=== PATIENT | male | born 1950 | race Caucasian/White ===

== ENCOUNTER 2022-04-08 10:47 | Outpatient (CLI) | payer BC ==
[~2022-04-08 10:47] MED LIST: Iopamidol 370 76% 100 ML VIAL ONE
== END 2022-04-08 10:48 | disposition home or self-care (01) ==
LOC: CT 10:47
PROVIDERS: ATTEND Internal Medicine Hematology & Oncology
DX: C22.0 Liver cell carcinoma (principal); Z98.890 Other specified postprocedural states
CPT/HCPCS: 71260; 74177; 82565; Q9967

== ENCOUNTER 2022-05-22 12:09 | Emergency (ER) | payer BC ==
[2022-05-22 12:51] LABS: Bilirubin Negative (Negative); Blood, Urine 2+ (Negative); Clarity Extra Turbid (Clear); Glucose, Urine (Dipstick) Normal (Negative); Ketone, Urine Negative (Negative); Leukocyte 500 Leu/uL (Negative); Nitrite Negative (Negative); Protein, Urine (Dipstick) 70 mg/dL (Neg-Trace); Specific Gravity, Urine 1.012 (1.002-1.036); Squamous Epithelial 0-3 HPF (0-3); pH, Urine 5.5 (5.0-9.0)
[2022-05-22 12:57] LABS: Bacteria/HPF 4+ HPF (None Seen); WBC/HPF 21-50 HPF (0-3)
== END 2022-05-22 13:24 | disposition home or self-care (01) ==
LOC: ERS 12:09
DX: N30.00 Acute cystitis without hematuria (principal); F17.220 Nicotine dependence, chewing tobacco, uncomplicated
CPT/HCPCS: 81003; 81015; 87077; 87086; 87186; 99283

== ENCOUNTER 2022-06-10 10:14 | Outpatient (CLI) | payer BC | END 2022-06-10 10:15 | disposition home or self-care (01) | LOC: CT 10:14 | PROVIDERS: ATTEND Internal Medicine Hematology & Oncology | DX: C22.0 Liver cell carcinoma (principal) | CPT/HCPCS: 71260; 82565; Q9967 ==

== ENCOUNTER 2024-07-15 11:05 | Day surgery (SDC) | payer BC, MEDICARE ==
[2024-07-15 11:33] LABS: #Basophils 0.07 10x3/uL (0.0-0.2); %Basophils 1.5 % (0.0-1.0); %Eosinophils 15.1 % (0.0-10.0); %Monocytes 8.5 % (0.0-10.0); %Neutrophils 63.7 % (42.0-75.0); Hemoglobin 11.9 g/dL (14.0-18.0); Mean Corpuscular HGB CONC 33.1 g/dL (32.0-36.0); Mean Corpuscular Hemoglobin 31.6 pg (27.0-31.0); Mean Corpuscular Volume 95.7 fL (78.0-98.0); Mean Platelet Volume 9.9 fL (7.4-10.4); Platelet Count 131 10x3/uL (130-400); RBC Distribution Width 14.9 % (11.5-14.5); Red Blood Cell (RBC) Count 3.76 mill/uL (4.70-6.10)
[2024-07-15 11:45] LABS: INR-International Normal Ratio 1.1; PTT 35.4 sec (22.9-36.1)
[2024-07-15] MEDS ORDERED: Lidocaine 1% PF 5 ML VIAL ONE (13:12)
== END 2024-07-15 14:38 | disposition home or self-care (01) ==
LOC: ULT 11:05
PROC: 0W9G30Z Drainage of Peritoneal Cavity with Drainage Device, Percutaneous Approach (ICD-10-PCS; principal; 2024-07-15)
DX: R18.8 Other ascites (principal); C22.0 Liver cell carcinoma; B18.2 Chronic viral hepatitis C; K72.90 Hepatic failure, unspecified without coma
CPT/HCPCS: 49083; 85025; 85610; 85730

== ENCOUNTER 2024-10-29 12:13 | Day surgery (SDC) | payer MEDICARE ==
[2024-10-29] MEDS ORDERED: Lidocaine 1% PF 5 ML VIAL ONE (13:35)
== END 2024-10-29 14:30 | disposition home or self-care (01) ==
LOC: MERGE 12:13 → ULT 12:13
PROVIDERS: ATTEND Internal Medicine Gastroenterology
PROC: 0W9G30Z Drainage of Peritoneal Cavity with Drainage Device, Percutaneous Approach (ICD-10-PCS; principal; 2024-10-29)
DX: R18.8 Other ascites (principal); I10 Essential (primary) hypertension; E78.00 Pure hypercholesterolemia, unspecified; Z79.82 Long term (current) use of aspirin; Z79.899 Other long term (current) drug therapy; Z87.891 Personal history of nicotine dependence
CPT/HCPCS: 49083

== ENCOUNTER 2024-11-13 12:07 | Day surgery (SDC) | payer MEDICARE ==
[2024-11-13] MEDS ORDERED: Lidocaine 1% PF 5 ML VIAL ONE (12:26)
[2024-11-13] MEDS ORDERED: Sodium Bicarbonate 2.5 MEQ/5 ML SDV ONE (12:26)
[2024-11-13 12:33] LABS: %Basophils 1.5 % (0.0-1.0); %Eosinophils 14.2 % (0.0-10.0); %Lymphocytes 9.4 % (21.0-51.0); %Monocytes 9.1 % (0.0-10.0); %Neutrophils 65.5 % (42.0-75.0); Hematocrit 31.6 % (42.0-52.0); Hemoglobin 10.4 g/dL (14.0-18.0); Mean Corpuscular HGB CONC 32.9 g/dL (32.0-36.0); Mean Corpuscular Hemoglobin 30.9 pg (27.0-31.0); Mean Corpuscular Volume 93.8 fL (78.0-98.0); Mean Platelet Volume 10.7 fL (7.4-10.4); Platelet Count 133 10x3/uL (130-400); RBC Distribution Width 14.9 % (11.5-14.5); Red Blood Cell (RBC) Count 3.37 mill/uL (4.70-6.10)
[2024-11-13 12:50] LABS: Anion Gap 13 mmol/L (10-20); BUN (Urea Nitrogen) 42 mg/dL (8.4-25.7); Calc. Creatinine Clearance 0 mL/min (70-130); Calcium 8.9 mg/dL (7.8-10.44); Carbon Dioxide 23 mmol/L (23-31); Chloride 112 mmol/L (98-107); Estimated GFR 40; Glucose 90 mg/dL (83-110); Potassium 3.9 mmol/L (3.5-5.1); Sodium 144 mmol/L (136-145)
[2024-11-13 12:52] LABS: PTT 34.8 sec (22.9-36.1)
== END 2024-11-13 14:10 | disposition home or self-care (01) ==
LOC: ULT 12:07 → MERGE 13:15 → ULT 14:10
PROVIDERS: ATTEND Internal Medicine Gastroenterology
PROC: 0W9G3ZZ Drainage of Peritoneal Cavity, Percutaneous Approach (ICD-10-PCS; principal; 2024-11-13)
DX: R18.8 Other ascites (principal); I85.00 Esophageal varices without bleeding; I10 Essential (primary) hypertension; E78.00 Pure hypercholesterolemia, unspecified; Z95.5 Presence of coronary angioplasty implant and graft; Z87.891 Personal history of nicotine dependence; Z85.05 Personal history of malignant neoplasm of liver; Z90.49 Acquired absence of other specified parts of digestive tract; Z88.5 Allergy status to narcotic agent; Z79.890 Hormone replacement therapy; Z79.82 Long term (current) use of aspirin; Z79.899 Other long term (current) drug therapy
CPT/HCPCS: 36415; 49083; 80048; 85025; 85610; 85730

== ENCOUNTER 2025-04-02 12:46 | Day surgery (SDC) | payer MEDICARE ==
[2025-04-02] MEDS ORDERED: Sodium Bicarbonate 2.5 MEQ/5 ML SDV ONE (13:08)
[2025-04-02] MEDS ORDERED: Lidocaine 1% PF 5 ML VIAL ONE (13:08)
== END 2025-04-02 14:25 | disposition home or self-care (01) ==
LOC: ULT 12:46
PROVIDERS: ATTEND Internal Medicine Gastroenterology
PROC: 0W9G3ZZ Drainage of Peritoneal Cavity, Percutaneous Approach (ICD-10-PCS; principal; 2025-04-02)
DX: C22.0 Liver cell carcinoma (principal); K74.60 Unspecified cirrhosis of liver; R18.8 Other ascites; Z88.5 Allergy status to narcotic agent
CPT/HCPCS: 49083

== ENCOUNTER 2025-04-25 12:26 | Day surgery (SDC) | payer MEDICARE ==
[2025-04-25] MEDS ORDERED: Lidocaine 1% PF 5 ML VIAL ONE (12:32)
[2025-04-25] MEDS ORDERED: Sodium Bicarbonate 2.5 MEQ/5 ML SDV ONE (12:33)
== END 2025-04-25 13:50 | disposition home or self-care (01) ==
LOC: ULT 12:26
PROVIDERS: ATTEND Internal Medicine Gastroenterology
DX: K74.60 Unspecified cirrhosis of liver (principal); R18.8 Other ascites; C22.0 Liver cell carcinoma; Z88.5 Allergy status to narcotic agent; Z88.8 Allergy status to other drugs, medicaments and biological substances; Z86.19 Personal history of other infectious and parasitic diseases
CPT/HCPCS: 49083

== ENCOUNTER 2025-05-02 11:59 | Day surgery (SDC) | payer MEDICARE ==
[2025-05-02] MEDS ORDERED: Lidocaine 1% PF 5 ML VIAL ONE ×2 (12:48→13:48)
[2025-05-02] MEDS ORDERED: Sodium Bicarbonate 2.5 MEQ/5 ML SDV ONE (12:48)
== END 2025-05-02 14:40 | disposition home or self-care (01) ==
LOC: ULT 11:59
PROVIDERS: ATTEND Internal Medicine Gastroenterology
DX: K74.60 Unspecified cirrhosis of liver (principal); R18.8 Other ascites; C22.0 Liver cell carcinoma; Z86.19 Personal history of other infectious and parasitic diseases; Z88.5 Allergy status to narcotic agent; Z88.8 Allergy status to other drugs, medicaments and biological substances
CPT/HCPCS: 49083

== ENCOUNTER 2025-05-09 12:45 | Day surgery (SDC) | payer MEDICARE ==
[2025-05-09] MEDS ORDERED: Sodium Bicarbonate 2.5 MEQ/5 ML SDV ONE (13:26)
[2025-05-09] MEDS ORDERED: Lidocaine 1% w/Epinephrine 1:100K 20 ML VIAL ONE (13:26)
== END 2025-05-09 14:35 | disposition home or self-care (01) ==
LOC: ULT 12:45
PROVIDERS: ATTEND Internal Medicine Gastroenterology
PROC: 0W9G3ZZ Drainage of Peritoneal Cavity, Percutaneous Approach (ICD-10-PCS; principal; 2025-05-09)
DX: K74.60 Unspecified cirrhosis of liver (principal); R18.8 Other ascites; C22.0 Liver cell carcinoma; Z86.19 Personal history of other infectious and parasitic diseases
CPT/HCPCS: 49083

== ENCOUNTER 2025-05-16 12:11 | Day surgery (SDC) | payer MEDICARE ==
[2025-05-16] MEDS ORDERED: Lidocaine 1% w/Epinephrine 1:100K 20 ML VIAL ONE (12:58)
[2025-05-16] MEDS ORDERED: Sodium Bicarbonate 2.5 MEQ/5 ML SDV ONE (12:58)
[2025-05-16] MEDS ORDERED: Lidocaine 1% PF 5 ML VIAL ONE (12:58)
== END 2025-05-16 15:40 | disposition home or self-care (01) ==
LOC: ULT 12:11
PROVIDERS: ATTEND Internal Medicine Gastroenterology
PROC: 0W9G3ZZ Drainage of Peritoneal Cavity, Percutaneous Approach (ICD-10-PCS; principal; 2025-05-16)
DX: K74.60 Unspecified cirrhosis of liver (principal); R18.8 Other ascites; C22.0 Liver cell carcinoma; Z86.19 Personal history of other infectious and parasitic diseases
CPT/HCPCS: 49083

== ENCOUNTER 2025-05-30 12:09 | Day surgery (SDC) | payer MEDICARE ==
[2025-05-30] MEDS ORDERED: Sodium Bicarbonate 2.5 MEQ/5 ML SDV ONE (13:14)
[2025-05-30] MEDS ORDERED: Lidocaine 1% PF 5 ML VIAL ONE (13:14)
[2025-05-30 15:59] VITALS: BP 118/64; TEMP 98
== END 2025-05-30 15:00 | disposition home or self-care (01) ==
LOC: ULT 12:09
PROVIDERS: ATTEND Internal Medicine Gastroenterology
PROC: 0W9G3ZZ Drainage of Peritoneal Cavity, Percutaneous Approach (ICD-10-PCS; principal; 2025-05-30)
DX: C22.0 Liver cell carcinoma (principal); K74.60 Unspecified cirrhosis of liver; R18.8 Other ascites; Z86.19 Personal history of other infectious and parasitic diseases
CPT/HCPCS: 49083

== ENCOUNTER → 2025-06-06 | Day surgery (SDC) | payer MEDICARE ==
[~2025-06-06] MED LIST changes: -Iopamidol 370 76% 100 ML VIAL ONE; +Lidocaine 1% PF 5 ML VIAL ONE; +Sodium Bicarbonate 2.5 MEQ/5 ML SDV ONE
== END ==
LOC: ULT 12:23
PROVIDERS: ATTEND Internal Medicine Gastroenterology
PROC: 0W9G30Z Drainage of Peritoneal Cavity with Drainage Device, Percutaneous Approach (ICD-10-PCS; principal; 2025-06-06)
DX: C22.0 Liver cell carcinoma (principal); K74.60 Unspecified cirrhosis of liver; R18.8 Other ascites
CPT/HCPCS: 49083

== ENCOUNTER 2025-06-10 10:15 | Outpatient (CLI) | payer MEDICARE | END 2025-06-10 10:16 | disposition home or self-care (01) | LOC: PET 10:15 | PROVIDERS: ATTEND Internal Medicine Hematology & Oncology | DX: C22.0 Liver cell carcinoma (principal); R30.0 Dysuria; Z79.899 Other long term (current) drug therapy; M89.9 Disorder of bone, unspecified | CPT/HCPCS: 78815; A9552 ==

== ENCOUNTER 2025-06-13 12:50 | Day surgery (SDC) | payer MEDICARE ==
[2025-06-13] MEDS ORDERED: Lidocaine 1% w/Epinephrine 1:100K 20 ML VIAL ONE (13:13)
[2025-06-13] MEDS ORDERED: Lidocaine 1% PF 5 ML VIAL ONE (13:13)
[2025-06-13] MEDS ORDERED: Sodium Bicarbonate 2.5 MEQ/5 ML SDV ONE (13:13)
== END 2025-06-13 14:40 | disposition home or self-care (01) ==
LOC: ULT 12:50
PROVIDERS: ATTEND Internal Medicine Gastroenterology
PROC: 0W9G3ZZ Drainage of Peritoneal Cavity, Percutaneous Approach (ICD-10-PCS; principal; 2025-06-13)
DX: K74.60 Unspecified cirrhosis of liver (principal); R18.8 Other ascites; Z86.19 Personal history of other infectious and parasitic diseases
CPT/HCPCS: 49083

== ENCOUNTER → 2025-06-20 | Day surgery (SDC) | payer MEDICARE ==
[~2025-06-20] MED LIST changes: +Lidocaine 1% w/Epinephrine 1:100K 20 ML VIAL ONE
== END ==
LOC: ULT 11:37
PROVIDERS: ATTEND Internal Medicine Gastroenterology
PROC: 0W9G3ZZ Drainage of Peritoneal Cavity, Percutaneous Approach (ICD-10-PCS; principal; 2025-06-20)
DX: R18.8 Other ascites (principal); C22.0 Liver cell carcinoma; I85.00 Esophageal varices without bleeding
CPT/HCPCS: 49083

== ENCOUNTER 2025-06-27 13:01 | Day surgery (SDC) | payer MEDICARE ==
[2025-06-27 12:16] LABS: #Basophils 0.05 10x3/uL (0.0-0.2); #Eosinophils 0.58 10x3/uL (0.0-0.7); #Monocytes 0.29 10x3/uL (0.11-0.59); #Neutrophils 2.50 10x3/uL (1.40-6.50); %Basophils 1.3 % (0.0-1.0); %Eosinophils 15.0 % (0.0-10.0); %Lymphocytes 11.1 % (21.0-51.0); %Monocytes 7.5 % (0.0-10.0); %Neutrophils 64.8 % (42.0-75.0); Hematocrit 28.1 % (42.0-52.0); Hemoglobin 8.7 g/dL (14.0-18.0); Mean Corpuscular Hemoglobin 29.5 pg (27.0-31.0); Mean Corpuscular Volume 95.3 fL (78.0-98.0); Platelet Count 85 10x3/uL (130-400); Red Blood Cell (RBC) Count 2.95 mill/uL (4.70-6.10); White Blood Cell (WBC) Count 3.86 10x3/uL (4.8-10.8)
[2025-06-27 12:20] LABS: INR-International Normal Ratio 1.1; Prothrombin Time 14.2 sec (12.0-14.7)
[2025-06-27 12:21] LABS: PTT 35.1 sec (22.9-36.1)
[2025-06-27] MEDS ORDERED: Sodium Bicarbonate 2.5 MEQ/5 ML SDV ONE (13:05)
== END 2025-06-27 14:20 | disposition home or self-care (01) ==
LOC: ULT 13:01
PROVIDERS: ATTEND Internal Medicine Gastroenterology
PROC: 0W9G3ZZ Drainage of Peritoneal Cavity, Percutaneous Approach (ICD-10-PCS; principal; 2025-06-27)
DX: R18.8 Other ascites (principal); C22.0 Liver cell carcinoma; I85.00 Esophageal varices without bleeding
CPT/HCPCS: 36415; 49083; 85025; 85610; 85730

== ENCOUNTER 2025-07-04 12:24 | Day surgery (SDC) | payer MEDICARE ==
[2025-07-04] MEDS ORDERED: Lidocaine 1% PF 5 ML VIAL ONE ×2 (13:05→13:15)
[2025-07-04] MEDS ORDERED: Sodium Bicarbonate 2.5 MEQ/5 ML SDV ONE (13:05)
== END 2025-07-04 13:45 | disposition home or self-care (01) ==
LOC: ULT 12:24
PROVIDERS: ATTEND Internal Medicine Gastroenterology
PROC: 0W9G3ZZ Drainage of Peritoneal Cavity, Percutaneous Approach (ICD-10-PCS; principal; 2025-07-04)
DX: R18.8 Other ascites (principal); C22.0 Liver cell carcinoma; I85.00 Esophageal varices without bleeding
CPT/HCPCS: 49083

== ENCOUNTER 2025-07-18 12:34 | Day surgery (SDC) | payer MEDICARE ==
[2025-07-18] MEDS ORDERED: Sodium Bicarbonate 2.5 MEQ/5 ML SDV ONE (12:59)
[2025-07-18] MEDS ORDERED: Lidocaine 1% PF 5 ML VIAL ONE (12:59)
[2025-07-18 15:27] LABS: RBC Count-Automated (BF) 0 /cu.mm; WBC/Nucleated-Auto (BF) 9 /cu.mm
[2025-07-18 16:17] LABS: BF Segmented Neutrophils 12 %; Cell Count Non Hematic 40 %
== END 2025-07-18 14:30 | disposition home or self-care (01) ==
LOC: ULT 12:34
PROVIDERS: ATTEND Internal Medicine Gastroenterology
DX: R18.8 Other ascites (principal); C22.0 Liver cell carcinoma; I85.00 Esophageal varices without bleeding
CPT/HCPCS: 49083; 85060; 87070; 87205; 88112; 88305; 89051

== ENCOUNTER 2025-07-25 12:43 | Day surgery (SDC) | payer MEDICARE ==
[2025-07-25] MEDS ORDERED: Sodium Bicarbonate 2.5 MEQ/5 ML SDV ONE (13:15)
[2025-07-25] MEDS ORDERED: Lidocaine 1% PF 5 ML VIAL ONE (13:15)
[2025-07-25 15:34] LABS: RBC Count-Automated (BF) 9 /cu.mm; WBC/Nucleated-Auto (BF) 9 /cu.mm
[2025-07-25 16:18] LABS: BF Segmented Neutrophils 5 %; Cell Count Non Hematic 49 %
== END 2025-07-25 14:45 | disposition home or self-care (01) ==
LOC: ULT 12:43
PROVIDERS: ATTEND Internal Medicine Gastroenterology
PROC: 0W9G3ZZ Drainage of Peritoneal Cavity, Percutaneous Approach (ICD-10-PCS; principal; 2025-07-25)
DX: R18.8 Other ascites (principal); C22.0 Liver cell carcinoma; I85.00 Esophageal varices without bleeding
CPT/HCPCS: 49083; 85060; 87070; 87205; 89051

== ENCOUNTER 2025-08-01 12:39 | Day surgery (SDC) | payer MEDICARE ==
[2025-08-01] MEDS ORDERED: Sodium Bicarbonate 2.5 MEQ/5 ML SDV ONE (12:58)
[2025-08-01] MEDS ORDERED: Lidocaine 1% PF 5 ML VIAL ONE (12:58)
[2025-08-01 13:35] LABS: #Basophils 0.07 10x3/uL (0.0-0.2); #Eosinophils 0.56 10x3/uL (0.0-0.7); #Monocytes 0.40 10x3/uL (0.11-0.59); #Neutrophils 3.39 10x3/uL (1.40-6.50); %Basophils 1.4 % (0.0-1.0); %Eosinophils 11.0 % (0.0-10.0); %Lymphocytes 13.1 % (21.0-51.0); %Monocytes 7.8 % (0.0-10.0); %Neutrophils 66.3 % (42.0-75.0); Hematocrit 33.7 % (42.0-52.0); Hemoglobin 10.4 g/dL (14.0-18.0); Mean Corpuscular Hemoglobin 28.9 pg (27.0-31.0); Mean Corpuscular Volume 93.6 fL (78.0-98.0); Platelet Count 107 10x3/uL (130-400); Red Blood Cell (RBC) Count 3.60 mill/uL (4.70-6.10); White Blood Cell (WBC) Count 5.11 10x3/uL (4.8-10.8)
[2025-08-01 13:42] LABS: INR-International Normal Ratio 1.0; PTT 35.2 sec (22.9-36.1); Prothrombin Time 13.6 sec (12.0-14.7)
[2025-08-01 16:00] LABS: RBC Count-Automated (BF) 0 /cu.mm; WBC/Nucleated-Auto (BF) 122 /cu.mm
[2025-08-01 16:59] LABS: Burr Cells SLIGHT = 2-5 cells HPF (0-1); Macrocytosis SLIGHT = 6-15 cells HPF (0-5); Ovalocytes SLIGHT = 2-5 cells HPF (0-1); Platelet Adequacy Comment Platelets Decreased; Polychromasia SLIGHT = 2-3 cells HPF (0-2)
[2025-08-01 17:35] LABS: BF Segmented Neutrophils 12 %; Cell Count Non Hematic 49 %
== END 2025-08-01 14:39 | disposition home or self-care (01) ==
LOC: ULT 12:39
PROVIDERS: ATTEND Internal Medicine Gastroenterology
PROC: 0W9G3ZX Drainage of Peritoneal Cavity, Percutaneous Approach, Diagnostic (ICD-10-PCS; principal; 2025-08-01)
DX: R18.8 Other ascites (principal); C22.0 Liver cell carcinoma; I85.00 Esophageal varices without bleeding; Z88.5 Allergy status to narcotic agent; Z88.6 Allergy status to analgesic agent
CPT/HCPCS: 36415; 49083; 85025; 85060; 85610; 85730; 87070; 87205; 88112; 88305; 89051

== ENCOUNTER → 2025-08-08 | Day surgery (SDC) | payer MEDICARE | LOC: ULT 12:21 | PROVIDERS: ATTEND Internal Medicine Gastroenterology | PROC: 0W9G3ZZ Drainage of Peritoneal Cavity, Percutaneous Approach (ICD-10-PCS; principal; 2025-08-08) | DX: C22.0 Liver cell carcinoma (principal); R18.8 Other ascites; I85.00 Esophageal varices without bleeding; Z88.5 Allergy status to narcotic agent | CPT/HCPCS: 49083 ==

== ENCOUNTER 2025-08-15 13:16 | Day surgery (SDC) | payer MEDICARE ==
[2025-08-15] MEDS ORDERED: Lidocaine 1% PF 5 ML VIAL ONE (13:44)
[2025-08-15] MEDS ORDERED: Sodium Bicarbonate 2.5 MEQ/5 ML SDV ONE (13:44)
== END 2025-08-15 15:05 | disposition home or self-care (01) ==
LOC: ULT 13:16
PROVIDERS: ATTEND Internal Medicine Gastroenterology
DX: C22.0 Liver cell carcinoma (principal); R18.8 Other ascites; I85.00 Esophageal varices without bleeding; Z88.5 Allergy status to narcotic agent
CPT/HCPCS: 49083

== ENCOUNTER 2025-08-21 08:47 | Outpatient (CLI) | payer MEDICARE | END 2025-08-21 08:48 | disposition home or self-care (01) | LOC: MRI 08:47 | PROVIDERS: ATTEND Internal Medicine Hematology & Oncology | DX: R30.0 Dysuria (principal); C22.0 Liver cell carcinoma; Z79.899 Other long term (current) drug therapy | CPT/HCPCS: 74183 ==

== ENCOUNTER → 2025-08-22 | Day surgery (SDC) | payer MEDICARE ==
[~2025-08-22] MED LIST changes: -Lidocaine 1% w/Epinephrine 1:100K 20 ML VIAL ONE
[2025-08-22 15:50] VITALS: BP 103/77
== END ==
LOC: ULT 12:40
PROVIDERS: ATTEND Internal Medicine Gastroenterology
PROC: 0W9G30Z Drainage of Peritoneal Cavity with Drainage Device, Percutaneous Approach (ICD-10-PCS; principal; 2025-08-22)
DX: C22.0 Liver cell carcinoma (principal); R18.8 Other ascites; I85.00 Esophageal varices without bleeding
CPT/HCPCS: 49083

== ENCOUNTER 2025-09-02 12:33 | Day surgery (SDC) | payer MEDICARE ==
[2025-09-02] MEDS ORDERED: Lidocaine 1% PF 5 ML VIAL ONE (12:35)
[2025-09-02] MEDS ORDERED: Sodium Bicarbonate 2.5 MEQ/5 ML SDV ONE (12:35)
[2025-09-02 12:43] LABS: #Basophils 0.10 10x3/uL (0.0-0.2); #Eosinophils 0.75 10x3/uL (0.0-0.7); #Monocytes 0.37 10x3/uL (0.11-0.59); #Neutrophils 4.85 10x3/uL (1.40-6.50); %Basophils 1.5 % (0.0-1.0); %Eosinophils 11.6 % (0.0-10.0); %Lymphocytes 6.0 % (21.0-51.0); %Monocytes 5.7 % (0.0-10.0); %Neutrophils 74.9 % (42.0-75.0); Hematocrit 31.6 % (42.0-52.0); Hemoglobin 9.8 g/dL (14.0-18.0); Mean Corpuscular Hemoglobin 28.7 pg (27.0-31.0); Mean Corpuscular Volume 92.7 fL (78.0-98.0); Platelet Count 122 10x3/uL (130-400); Red Blood Cell (RBC) Count 3.41 mill/uL (4.70-6.10); White Blood Cell (WBC) Count 6.48 10x3/uL (4.8-10.8)
[2025-09-02 13:07] LABS: INR-International Normal Ratio 1.1; PTT 36.6 sec (22.9-36.1); Prothrombin Time 13.8 sec (12.0-14.7)
== END 2025-09-02 14:39 | disposition home or self-care (01) ==
LOC: ULT 12:33
PROVIDERS: ATTEND Internal Medicine Gastroenterology
PROC: 0W9G3ZZ Drainage of Peritoneal Cavity, Percutaneous Approach (ICD-10-PCS; principal; 2025-09-02)
DX: C22.0 Liver cell carcinoma (principal); R18.8 Other ascites; I85.00 Esophageal varices without bleeding; Z88.5 Allergy status to narcotic agent
CPT/HCPCS: 36415; 49083; 85025; 85610; 85730

== ENCOUNTER → 2025-09-12 | Day surgery (SDC) | payer MEDICARE ==
[2025-09-12 14:39] VITALS: BP 111/66
== END ==
LOC: ULT 12:53
PROVIDERS: ATTEND Internal Medicine Gastroenterology
PROC: 0W9G3ZZ Drainage of Peritoneal Cavity, Percutaneous Approach (ICD-10-PCS; principal; 2025-09-12)
DX: R18.8 Other ascites (principal); C22.0 Liver cell carcinoma; I85.00 Esophageal varices without bleeding
CPT/HCPCS: 49083

== ENCOUNTER 2025-09-19 13:05 | Emergency (ER) | payer MEDICARE ==
[2025-09-19 14:02] LABS: #Basophils 0.08 10x3/uL (0.0-0.2); #Eosinophils 0.63 10x3/uL (0.0-0.7); #Monocytes 0.44 10x3/uL (0.11-0.59); #Neutrophils 4.12 10x3/uL (1.40-6.50); %Basophils 1.4 % (0.0-1.0); %Eosinophils 11.3 % (0.0-10.0); %Lymphocytes 5.4 % (21.0-51.0); %Monocytes 7.9 % (0.0-10.0); %Neutrophils 73.8 % (42.0-75.0); Hematocrit 31.0 % (42.0-52.0); Hemoglobin 9.8 g/dL (14.0-18.0); Mean Corpuscular Hemoglobin 28.4 pg (27.0-31.0); Mean Corpuscular Volume 89.9 fL (78.0-98.0); Platelet Count 96 10x3/uL (130-400); Red Blood Cell (RBC) Count 3.45 mill/uL (4.70-6.10); White Blood Cell (WBC) Count 5.58 10x3/uL (4.8-10.8)
[2025-09-19 14:17] LABS: Anion Gap 15 mmol/L (10-20); BUN (Urea Nitrogen) 59 mg/dL (8.4-25.7); Calc. Creatinine Clearance 0 mL/min (70-130); Calcium 8.6 mg/dL (7.8-10.44); Carbon Dioxide 14 mmol/L (23-31); Chloride 115 mmol/L (98-107); Glucose 93 mg/dL (83-110); Potassium 4.6 mmol/L (3.5-5.1); Sodium 139 mmol/L (136-145)
[2025-09-19 14:19] LABS: ALT (SGPT) 24 U/L (Less than 45); AST (SGOT) 30 U/L (11-34); Albumin 2.3 g/dL (3.1-4.5); Alkaline Phosphatase 185 U/L (40-110); Bilirubin, Direct 0.1 mg/dL (0.1-0.3); Bilirubin, Total 0.2 mg/dL (0.3-1.2); Lipase 18 U/L (8-78)
[2025-09-19 14:50] LABS: Bacteria/HPF None Seen HPF (None Seen); CAUTI Indications for Culture Alt mental st,lethar; Glucose, Urine (Dipstick) 30 mg/dL (Negative); Leukocyte Negative Leu/uL (Negative); Protein, Urine (Dipstick) 20 mg/dL (Neg-Trace); RBC/HPF 0-3 HPF (0-3); Specific Gravity, Urine 1.021 (1.002-1.036); WBC/HPF 0-3 HPF (0-3)
[2025-09-19 14:52] LABS: Urine Culture Reflex No No
[2025-09-19] MEDS ORDERED: Ketorolac Tromethamine 30 MG (1 mL) VIAL ONE (15:27)
== END 2025-09-19 15:33 | disposition home or self-care (01) ==
LOC: ERS 13:05
DX: R53.1 Weakness (principal); I10 Essential (primary) hypertension; C22.0 Liver cell carcinoma; F17.220 Nicotine dependence, chewing tobacco, uncomplicated; Z79.899 Other long term (current) drug therapy
CPT/HCPCS: 71045; 80048; 80076; 81001; 83690; 84484; 85025; 93005; J1885

== ENCOUNTER 2025-09-19 15:55 | Day surgery (SDC) | payer MEDICARE | END 2025-09-19 17:15 | disposition home or self-care (01) | LOC: ULT 15:55 | PROVIDERS: ATTEND Internal Medicine Gastroenterology | PROC: 0W9G3ZZ Drainage of Peritoneal Cavity, Percutaneous Approach (ICD-10-PCS; principal; 2025-09-19) | DX: C22.0 Liver cell carcinoma (principal); K74.60 Unspecified cirrhosis of liver; R18.8 Other ascites; Z88.5 Allergy status to narcotic agent; R53.1 Weakness; I10 Essential (primary) hypertension; F17.220 Nicotine dependence, chewing tobacco, uncomplicated; Z79.899 Other long term (current) drug therapy | CPT/HCPCS: 49083; 71045; 80048; 80076; 81001; 83690; 84484; 85025; 93005; 99285; J1885 ==

== ENCOUNTER 2025-09-29 12:47 | Day surgery (SDC) | payer MEDICARE ==
[2025-09-29] MEDS ORDERED: Lidocaine 1% PF 5 ML VIAL ONE (13:11)
[2025-09-29] MEDS ORDERED: Lidocaine-Prilocaine 2.5% Cream 5 GM TUBE ONE (13:36)
== END 2025-09-29 14:40 | disposition home or self-care (01) ==
LOC: ULT 12:47
PROVIDERS: ATTEND Internal Medicine Gastroenterology
PROC: 0W9G30Z Drainage of Peritoneal Cavity with Drainage Device, Percutaneous Approach (ICD-10-PCS; principal; 2025-09-29)
DX: C22.0 Liver cell carcinoma (principal); K74.60 Unspecified cirrhosis of liver; R18.8 Other ascites
CPT/HCPCS: 36415; 49083; 80053; 82105; 84436; 84443